=== PATIENT | female | born 1975 | race Caucasian/White ===

== ENCOUNTER 2017-01-23 12:37 | Emergency (ER) | payer MEDICAID, OTHER ==
[~2017-01-23] VITALS: Ht 172.7 cm; Wt 81.6 kg
[2017-01-23 13:38] LABS: Basophils # (auto) 0 uL; Basophils % (auto) 0.5 % (0.0-2.0); DEFINITIVE VIEW TRANSMISSION; Eosinophils # (auto) 0.2 uL; Hematocrit 39.5 % (36.0-46.0); Lymphocytes # (auto) 2.2 uL; Lymphocytes % (auto) 32.9 % (10.0-50.0); Mean Corpuscular Hemoglobin 26.2 pg (28.0-32.0); Mean Corpuscular Hgb Conc. 32.8 g/dL (32.0-36.0); Mean Corpuscular Volume 79.9 fL (80.0-100.0); Mean Platelet Volume 7.5 fL (7.4-10.4); Monocytes # (auto) 0.5 uL; Monocytes % (auto) 7.3 % (0.0-12.0); Neutrophils # (auto) 3.8 uL; Neutrophils % (auto) 56.3 % (37.0-80.0); Platelet Count (auto) 515 10^3/uL (140-450); White Blood Cell 6.7 10^3/uL (4.4-10.8)
[2017-01-23 13:39] LABS: Red Cell Distribution Width 20.8 % (11.6-16.0)
[2017-01-23 14:04] LABS: INR 0.96 (0.9-1.15); Partial Thromboplastin Time 26.2 sec (22.64-33.71); Prothrombin Time 10.4 sec (9.37-12.3)
[2017-01-23 14:19] LABS: Albumin 3.8 g/dL (3.4-5.0); BUN/Creatinine Ratio 9.8; Bilirubin, Total 0.5 mg/dL (0.2-1.0); Magnesium 2.5 mg/dL (1.6-2.6); Potassium 4.2 mmol/L (3.5-5.1); Total Protein 7.9 g/dL (6.4-8.2)
[2017-01-23] MEDS ORDERED: ACETAMINOPHEN 325 MG TAB PO ONE (15:00)
[2017-01-23] MEDS ORDERED: MORPHINE SULF INJ 2 MG/ML SYRINGE 1ML IV ONE (15:45)
[2017-01-23] MEDS ORDERED: ONDANSETRON HCL 4 MG/2 ML VIAL IV ONE (15:45)
[2017-01-23 16:18] LABS: Platelet Estimate Increased
[2017-01-23 16:21] LABS: Ovalocytes FEW; Tear Drop Cells FEW
[2017-01-23 16:22] LABS: Anisocytosis Slight; Hypochromia Slight
[2017-01-23 17:55] VITALS: BP 113/52
== END 2017-01-23 18:50 | disposition short-term general hospital (02) ==
LOC: ER 12:37 → EDBD 12:37 → ER 18:50
DX: I62.9 Nontraumatic intracranial hemorrhage, unspecified (principal); I10 Essential (primary) hypertension; I63.9 Cerebral infarction, unspecified; F17.210 Nicotine dependence, cigarettes, uncomplicated
CPT/HCPCS: 36415; 70450; 80053; 83735; 85025; 85610; 85730; 96374; 96375; 99291; J2270; J2405

== ENCOUNTER 2017-01-24 16:24 | Emergency (ER) | payer MEDICAID ==
[~2017-01-24] VITALS: Ht 167.6 cm; Wt 74.8 kg
[2017-01-24 16:47] VITALS: BP 168/96
== END 2017-01-24 18:08 | disposition left against medical advice (07) ==
LOC: EDBD 16:24 → ER 16:24
DX: R11.2 Nausea with vomiting, unspecified (principal); R51 Headache; Z53.21 Procedure and treatment not carried out due to patient leaving prior to being seen by health care provider
CPT/HCPCS: 93005

== ENCOUNTER 2018-06-06 08:04 | Emergency (ER) | payer MEDICAID ==
[~2018-06-06] VITALS: Ht 162.6 cm; Wt 65.8 kg
[2018-06-06] MEDS ORDERED: SODIUM CHLORIDE 0.9% 1,000 ML IV ONE (08:37)
[2018-06-06] MEDS ORDERED: DOCUSATE SOD 100 MG CAP PO ONE (08:45)
[2018-06-06 09:13] LABS: Urine Bacteria FEW /hpf (None Seen); Urine Blood 2+ /uL (Negative); Urine Specific Gravity 1.004 (1.001-1.035); Urine WBC <1 /hpf (0 - 5)
[2018-06-06 09:15] LABS: Eosinophils # (auto) 0 uL; Lymphocytes # (auto) 2.4 uL; Mean Corpuscular Hgb Conc. 32.3 g/dL (32.0-36.0); Monocytes # (auto) 0.3 uL; Neutrophils # (auto) 3.6 uL; White Blood Cell 6.4 10^3/uL (4.4-10.8)
[2018-06-06 09:16] LABS: Basophils # (auto) 0 uL; Basophils % (auto) 0.6 % (0.0-2.0); Eosinophils % (auto) 0.3 % (0.0-7.0); Hematocrit 34.8 % (36.0-46.0); Hemoglobin 11.2 g/dL (12.2-16.2); Lymphocytes % (auto) 38.4 % (10.0-50.0); Mean Corpuscular Hemoglobin 25.3 pg (28.0-32.0); Mean Corpuscular Volume 78.5 fL (80.0-100.0); Monocytes % (auto) 4.6 % (0.0-12.0); Neutrophils % (auto) 56.1 % (37.0-80.0); Platelet Count (auto) 485 10^3/uL (140-450); Red Blood Cells 4.43 10^6/uL (4.0-5.20); Red Cell Distribution Width 19.9 % (11.8-14.3)
[2018-06-06 09:37] LABS: Albumin 3.7 g/dL (3.4-5.0); BUN/Creatinine Ratio 5.2; Bilirubin, Total 0.3 mg/dL (0.2-1.0); Calcium 8.4 mg/dL (8.5-10.1); Potassium 3.8 mmol/L (3.5-5.1); Total Protein 8.7 g/dL (6.4-8.2)
[2018-06-06 09:53] VITALS: BP 124/97
== END 2018-06-06 10:09 | disposition home or self-care (01) ==
LOC: ER 08:04 → EDBD 08:04 → ER 10:09
DX: K59.00 Constipation, unspecified (principal); I63.9 Cerebral infarction, unspecified; R11.2 Nausea with vomiting, unspecified; I10 Essential (primary) hypertension; F17.210 Nicotine dependence, cigarettes, uncomplicated
CPT/HCPCS: 36415; 74176; 80053; 81001; 82150; 83690; 85025; 96360; 99285; J7030